=== PATIENT | female | born 1990 ===

== ENCOUNTER 2020-04-02 12:47 | Emergency (ER) | payer SELFPAY ==
[~2020-04-02] VITALS: Ht 172.7 cm; Wt 69.0 kg
[2020-04-02] MEDS ORDERED: NO HOME MEDS (13:01)
--- NOTE | 2020-04-02 13:15 | NUR ---
Unable to acccurately obtain Suicide assessment due to patient's psychosis.
[2020-04-02 13:27] LABS: BASOPHILS # (AUTO) 0.1 X10'3 (0-0.2); BASOPHILS % (AUTO) 0.8 % (0-1); EOSINOPHILS % (AUTO) 0.1 % (0-6); HEMOGLOBIN 13.9 g/dl (12.0-16.0); LYMPHOCYTES # (AUTO) 1.5 X10'3 (1.1-4.8); MEAN CORPUSCULAR HGB CONC 33.9 g/dL (33.0-36.5); MEAN CORPUSCULAR VOLUME 94.6 FL (78-98); MEAN PLATELET VOLUME 8.8 FL (7.4-10.4); MONOCYTES # (AUTO) 0.5 X10'3 (0-0.9); MONOCYTES % (AUTO) 6.8 % (2-12); NEUTROPHILS % (AUTO) 71.3 % (42-75); PLATELET COUNT 244 X10'3 (140-440); RED BLOOD COUNT 4.34 X10'6 (4.20-5.60); RED CELL DISTRIBUTION WIDTH 13.8 % (11.5-14.5)
[2020-04-02 13:38] LABS: ALANINE AMINOTRANSFERASE 25 U/L (12-78); ALBUMIN 4.1 G/DL (3.4-5.0); ALBUMIN/GLOBULIN RATIO 1.3 (1.1-1.5); ALKALINE PHOSPHATASE 65 IU/L (46-116); ANION GAP 12 (8-16); ASPARTATE AMINO TRANSFERASE 21 U/L (10-37); BILIRUBIN,TOTAL 0.6 MG/DL (0.1-1.0); BLOOD UREA NITROGEN 6 MG/DL (7-18); BUN/CREATININE RATIO 5.9 (6.6-38.0); CALCIUM 8.9 MG/DL (8.5-10.1); CHLORIDE 111 MMOL/L (99-107); CREATININE 1.02 MG/DL (0.40-0.90); ETHANOL < 0.010 GM/DL (0.0-0.010); GLUCOSE 141 MG/DL (70-104); POTASSIUM 3.1 MMOL/L (3.5-5.1); SODIUM 146 MMOL/L (135-145); TOTAL PROTEIN 7.3 G/DL (6.4-8.2); eGFR 65 ML/MIN
--- NOTE | 2020-04-02 14:30 | NUR ---
Unable to obtain information regarding SI/Si history,patient hyperverbal.
[2020-04-02] MEDS ORDERED: diphenhydrAMINE 25mg capsule PO ONE (14:45)
[2020-04-02] MEDS ORDERED: LORazepam 2 mg/ml vial IM ONE (14:45)
[2020-04-02] MEDS ORDERED: ziprasidone 20mg capsule PO SCH (15:00)
[2020-04-02] MEDS ORDERED: ziprasidone 20mg capsule PO ONE (15:00)
--- NOTE | 2020-04-02 16:11 | NUR ---
patient on buitrago position,asleep,respirations regular.On [id number] observation.We will monitor,urine collection for tox screen pending,will collect once patient awakens.
--- NOTE | 2020-04-02 17:05 | NUR ---
attempted to set pt. on a bedside camode. pt. was too tired to to do it safely. stareted to do a quick cath, just as i was cleaning the pt. she placed her hands in the way and refused. pt. was then placed on a bed roach. bed was moved over to the sink where i ran warm water on her right hand. no urine resulted from all my efforts. pt. now on her left side covered in warm blankets
[2020-04-02] MEDS: ziprasidone 20mg capsule PO SCH (20:00)
--- NOTE | 2020-04-03 02:19 | NUR ---
pt up to use the BR, I gave her a wipe and a hat. She is not trusting but she did give a sample after she was ensured that its for a urine analysis to make sure she doesn't have an infection, to test for and to test for drugs. She understood and was fine with it. She walked back to her room and is drinking ice water that I gave for her. She refused food. She said she doesn't need anything and has enough blankets. Encouraged her to ask if she needed anything.
[2020-04-03 02:38] LABS: URINE HCG NEGATIVE (NEG)
[2020-04-03 02:49] LABS: URINE AMPHETAMINE SCREEN NEGATIVE (Neg); URINE BARBITUATE SCREEN NEGATIVE (Neg); URINE BENZODIAZEPINES SCREEN NEGATIVE (Neg); URINE CANNABINOID SCREEN POSITIVE (Neg); URINE COCAINE SCREEN NEGATIVE (Neg); URINE METHADONE SCREEN NEGATIVE (Neg); URINE OPIATE SCREEN NEGATIVE (Neg); URINE PHENCYCLIDINE SCREEN NEGATIVE (Neg)
[2020-04-03 02:52] LABS: CLARITY,URINE CLEAR (Clear); COLOR,URINE YELLOW (Yellow); GLUCOSE, URINE NEGATIVE (Neg); KETONES,URINE TRACE mg/dl (Neg); LEUKOCYTE ESTERASE ,URINE NEGATIVE (Neg); NITRITES, URINE NEGATIVE (Neg); OCCULT BLOOD,URINE TRACE-INTACT (Neg); PROTEIN,URINE NEGATIVE (Neg); UROBILINOGEN,URINE 0.2 E.U/dL (0.2-1.0)
[2020-04-03 02:58] LABS: UA COLLECTION TYPE CLN CATCH MIDSTREAM
[2020-04-03 02:59] LABS: BACTERIA,URINE FEW /HPF (Neg); MUCUS STRANDS FEW /LPF (Neg); RBC,URINE 0-2 /HPF (0-2); SQUAMOUS EPITHELIAL CELL,UR FEW /LPF (FEW); WBC,URINE 0-4 /HPF (0-4)
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
--- NOTE | 2020-04-03 05:08 | NUR ---
Patient is sleeping quietly on her left side.
--- NOTE | 2020-04-03 05:27 | NUR ---
Patient remains sleeping. A Borger level has been ordered, routine draw. Joel Perea RN in [facility] has been notified that we need one of the providers consult for Rx medications, etc. The patient states she takes an over the counter Borger and also Lamictal. Dosages unknown..
[2020-04-03] MEDS: ziprasidone 20mg capsule PO SCH (08:00)
[2020-04-03] MEDS ORDERED: ziprasidone IM 20mg inj **IM only IM ONE (10:10)
--- NOTE | 2020-04-03 10:45 | NUR ---
I spoke to patients Father over the phone. The Father stated they had been trying to find her for 24 hours. He is currently in [place] but plans to fly down to help out. He was able to speak to his daughter and after told me that this is the worse he has experienced her eric. Father was told he would be updated about patients care, and told to call back if he had any questions. Father and patient were educated on 5150 hold. Father voiced understanding.
--- NOTE | 2020-04-03 14:30 | NUR ---
PT. WAS SEEN BY [facility] AND THE 5150 IS BEING RETRACTED BECAUSE THE PATIENT PRESENTS NO HARM TO HER SELF OR THOSE AROUND HER. IS AWARE AND IS ON BOARD WITH PLAN OF CARE. PATIENTS FATHER WILL BE COMING TO GET HER AROUND 6:30 PM THIS EVENING.
[2020-04-03 17:52] VITALS: BP 138/99
[2020-04-03] MEDS ORDERED: LAMO150T6 PO (18:19)
[2020-04-03] MEDS ORDERED: ziprasidone 20mg capsule PO STA (18:21)
== END 2020-04-03 18:42 ==
LOC: ER 12:48
DX: F29 Unspecified psychosis not due to a substance or known physiological condition (principal)
CPT/HCPCS: 36415; 80053; 80178; 80305; 80320; 81001; 81025; 85025; 96372; 99285; J2060; J3486; Q0163

== ENCOUNTER 2020-04-05 11:41 | Emergency (ER) | payer SELFPAY ==
[~2020-04-05 11:41] MED LIST: LAMO150T6 PO; NO HOME MEDS
== END 2020-04-05 14:37 | disposition left against medical advice (07) ==
LOC: ER 11:41
DX: F30.9 Manic episode, unspecified (principal); Z53.21 Procedure and treatment not carried out due to patient leaving prior to being seen by health care provider

== ENCOUNTER 2020-04-07 08:29 | Emergency (ER) | payer SELFPAY ==
[~2020-04-07] VITALS: Ht 170.2 cm; Wt 70.5 kg
[2020-04-07] MEDS ORDERED: diphenhydrAMINE 50 mg/ml inj IM ONE (08:35)
[2020-04-07] MEDS ORDERED: LORazepam 2 mg/ml vial IM ONE (08:35)
[2020-04-07] MEDS: ziprasidone IM 20mg inj **IM only IM ONE (08:51)
[2020-04-07 08:59] VITALS: BP 120/80
== END 2020-04-07 09:19 | disposition home or self-care (01) ==
LOC: ER 08:30
DX: S00.33XA Contusion of nose, initial encounter (principal); R04.0 Epistaxis; F29 Unspecified psychosis not due to a substance or known physiological condition; Z79.899 Other long term (current) drug therapy; X58.XXXA Exposure to other specified factors, initial encounter; Y93.89 Activity, other specified; Y92.89 Other specified places as the place of occurrence of the external cause; Y99.8 Other external cause status
CPT/HCPCS: 96372; 99284; J1200; J2060; J3486